=== PATIENT | female | born 1985 | race Two or more races ===

== ENCOUNTER 2020-09-22 03:19 | Emergency (ER) | payer MEDICAID ==
[~2020-09-22] VITALS: Ht 160 cm; Wt 83.9 kg
[2020-09-22 03:27] VITALS: BP 155/94
[2020-09-22 04:28] LABS: Basophils # (auto) 0 10 ^3/uL (0-0.2); Basophils % (auto) 0.5 % (0.0-2.0); Eosinophils # (auto) 0 10 ^3/uL (0-0.8); Eosinophils % (auto) 0.2 % (0.0-7.0); Hematocrit 43.3 % (36.0-46.0); Hemoglobin 14.4 g/dL (12.2-16.2); Lymphocytes # (auto) 1.4 10 ^3/uL (0.4-5.4); Mean Corpuscular Hemoglobin 27.2 pg (28.0-32.0); Mean Corpuscular Hgb Conc. 33.2 g/dL (32.0-36.0); Mean Corpuscular Volume 81.9 fL (80.0-100.0); Monocytes # (auto) 0.3 10 ^3/uL (0-1.3); Monocytes % (auto) 3.8 % (0.0-12.0); Neutrophils % (auto) 79.5 % (37.0-80.0); Nucleated Red Blood Cells % 0.2 %; Platelet Count (auto) 266 10^3/uL (140-450); Red Blood Cells 5.29 10^6/uL (4.0-5.20); Red Cell Distribution Width 13.4 % (11.8-14.3); White Blood Cell 8.8 10^3/uL (4.4-10.8)
[2020-09-22] MEDS ORDERED: SODIUM CHLORIDE 0.9% 1,000 ML IV ONE (04:30)
[2020-09-22] MEDS ORDERED: THIAMINE INJ 100 MG in SODIUM CHLORIDE 0.9% 1,000 ML IV ONE (04:30)
[2020-09-22 04:41] LABS: Potassium 3.3 mmol/L (3.5-5.1)
[2020-09-22 04:52] LABS: Albumin 3.6 g/dL (3.4-5.0); BUN/Creatinine Ratio 16.5; Bilirubin, Total 0.6 mg/dL (0.2-1.0); Calcium 8.6 mg/dL (8.5-10.1); Total Protein 7.8 g/dL (6.4-8.2)
[2020-09-22 08:50] LABS: Amphetamine Screen, Urine NEGATIVE (NEGATIVE); Barbiturate Scree,Urine NEGATIVE (NEGATIVE); Benzodiazephine Screen, Urine NEGATIVE (NEGATIVE); Cannabinoid Screen, Urine NEGATIVE (NEGATIVE); Cocaine Screen, Urine NEGATIVE (NEGATIVE); Opiate Scree,Urine NEGATIVE (NEGATIVE); Phencyclidine Screen, Urine NEGATIVE (NEGATIVE)
[2020-09-22 08:54] LABS: Urine Bacteria FEW /hpf (None Seen); Urine Blood Negative /uL (Negative); Urine Specific Gravity 1.035 (1.001-1.035); Urine WBC 1 /hpf (0 - 5)
== END 2020-09-22 10:08 | disposition home or self-care (01) ==
LOC: ER 03:19 → EDBD 03:19 → ER 10:08
DX: F10.129 Alcohol abuse with intoxication, unspecified (principal); Y90.8 Blood alcohol level of 240 mg/100 ml or more
CPT/HCPCS: 36415; 80053; 80307; 80320; 81001; 82010; 85025; 99283; J3411; J7030

== ENCOUNTER 2022-10-10 11:15 | Emergency (ER) | payer MEDICAID ==
[~2022-10-10] VITALS: Ht 160 cm; Wt 83.4 kg
[2022-10-10] MEDS ORDERED: ASPirin 81 mg TAB PO ONE (11:45)
[2022-10-10 12:41] LABS: Urine Bacteria FEW /hpf (None Seen); Urine Blood Negative /uL (Negative); Urine Specific Gravity 1.044 (1.001-1.035); Urine WBC 1 /hpf (0 - 5)
[2022-10-10 13:46] LABS: Albumin 3.4 g/dL (3.4-5.0); Anion Gap 11 (5-15); BUN/Creatinine Ratio 17.9; Blood Urea Nitrogen 7 mg/dL (7-18); Calcium 7.9 mg/dL (8.5-10.1); Carbon Dioxide 20 mmol/L (21-32); Chloride 101 mmol/L (98-107); GFR African American 237 mL/min; GFR Non-African American 195 mL/min; Glucose 321 mg/dL (74-106); Magnesium 2.1 mg/dL (1.6-2.6); Potassium 4.2 mmol/L (3.5-5.1); Sodium 132 mmol/L (136-145)
[2022-10-10 13:48] LABS: Alkaline Phosphatase 61 U/L (45-117); Bilirubin, Total 1.2 mg/dL (0.2-1.0)
[2022-10-10 13:58] LABS: Partial Thromboplastin Time 26.3 sec (24.6-33.4)
[2022-10-10 14:27] LABS: Alanine Aminotransferase 48 U/L (13-56); Aspartate Aminotransferase 21 U/L (15-37); Total Protein 7.8 g/dL (6.4-8.2)
[2022-10-10] MEDS ORDERED: IOHEXOL 350 MG/ML 100ML IJ ONE (14:45)
[2022-10-10 17:22] LABS: White Blood Cell 12.4 10^3/uL (4.4-10.8)
[2022-10-10 17:23] LABS: Hemoglobin 11.2 g/dL (12.2-16.2); Red Blood Cells 5.11 10^6/uL (4.0-5.20)
[2022-10-10 17:24] LABS: Mean Corpuscular Hemoglobin 31.9 pg (28.0-32.0); Mean Corpuscular Hgb Conc. 39.6 g/dL (32.0-36.0); Mean Corpuscular Volume 80.2 fL (80.0-100.0)
[2022-10-10] MEDS ORDERED: CEPH-322 PO (17:27)
[2022-10-10] MEDS ORDERED: GLIP10TA9 PO (17:27)
[2022-10-10 17:29] LABS: Basophils % (manual) 0 (0.0-2.0); Blast Cells 0; Eosinophils % (manual) 0 (0-7); Metamyelocytes % 0; Monocytes % (manual) 0 (0-12); Myelocytes % 0; Promyelocytes % 0; Reactive Lymphocytes 0
[2022-10-10 18:27] VITALS: BP 119/73
[2022-10-10 18:40] LABS: Band Neutrophils % (manual) 1; Lymphocytes % (manual) 11 (10.0-50.0)
[2022-10-11] MEDS ORDERED: NITROGLYCERIN 0.4 MG SL TAB SL ONE (10:00)
== END 2022-10-10 18:27 | disposition home or self-care (01) ==
LOC: ER 11:15
DX: E11.65 Type 2 diabetes mellitus with hyperglycemia (principal); N39.0 Urinary tract infection, site not specified; R07.89 Other chest pain; Z20.822 Contact with and (suspected) exposure to COVID-19
CPT/HCPCS: 36415; 71045; 71275; 80053; 81001; 83735; 83880; 84484; 85007; 85027; 85379; 85730; 87426; 87804; 93005; 99285; Q9967